=== PATIENT | male | born 1960 | race Caucasian/White ===

== ENCOUNTER 2016-12-29 17:00 | Emergency (ER) | payer BC ==
[~2016-12-29] VITALS: Ht 185.4 cm; Wt 93.2 kg
[2016-12-29 17:02] VITALS: TEMP 98.3
[2016-12-29] MEDS ORDERED: LIPITOR20 MG PO (17:22)
[2016-12-29] MEDS ORDERED: LEXAPRO 10MG10 MG PO (17:22)
[2016-12-29] MEDS ORDERED: DEXILANT60 MG PO (17:23)
[2016-12-29] MEDS ORDERED: ZANTAC 150MG T150 MG PO (17:23)
[2016-12-29] MEDS ORDERED: LOTENSIN 1010 MG/TAB PO (17:23)
[2016-12-29] MEDS ORDERED: XANAX 0.5MG0.5 MG PO (17:24)
[2016-12-29 17:59] LABS: BASO % 0.4 % (0.0-2.0); EOS % 0.3 % (0-4.0); GRAN # 4.8 (1.4-6.5); GRAN % 68.4 % (42.2-75.2); HEMATOCRIT 43.1 % (42.0-52.0); LYMPH # 1.8 (1.2-3.4); LYMPH % 25.4 % (20.0-51.0); MEAN CELL VOLUME 93 fl (80.0-100.0); MEAN CORPUSCULAR HEMOGLOBIN 32 pg (27.0-31.0); MEAN CORPUSCULAR HGB CONC 35 g/dl (33.0-37.0); MONO # 0.4 (0.1-0.6); MONO % 5.4 % (1.7-9.3); PLATELET COUNT 246 K/mm3 (130-400); RED BLOOD COUNT 4.65 M/mm3 (4.20-5.60); WHITE BLOOD COUNT 7.1 K/mm3 (4.8-10.8)
[2016-12-29 18:03] LABS: PROTHROMBIN TIME 11.6 SECONDS (9.7-12.8)
[2016-12-29 18:05] LABS: PARTIAL THROMBOPLASTIN TIME 27.2 SECONDS (26.0-37.0)
[2016-12-29 18:08] LABS: ADJUSTED CALCIUM 8.8 mg/dL (8.4-10.2); ALANINE AMINOTRANSFERASE 26 U/L (21-72); ALBUMIN 4.4 gm/dL (3.5-5.0); ALKALINE PHOSPHATASE 59 U/L (50-136); ANION GAP 12 mmol/L (7-16); BILIRUBIN,TOTAL 1.1 mg/dL (0.0-1.0); BLOOD UREA NITROGEN 9 mg/dL (9-20); CALCIUM 9.1 mg/dL (8.4-10.2); CARBON DIOXIDE 24 mmol/L (22-30); CHLORIDE 103 mmol/L (98-107); CREATININE, serum 0.89 mg/dL (0.66-1.25); GLUCOSE 86 mg/dL (74-106); POTASSIUM 4.2 mmol/L (3.4-5.0); SODIUM 139 mmol/L (137-145); TOTAL PROTEIN 7.2 gm/dL (6.4-8.2)
[2016-12-29 18:19] LABS: TROPONIN-I < 0.012 ng/mL (0.000-0.034)
[2016-12-29] MEDS ORDERED: ATIVAN 1MG T1 MG/TAB PO (18:32)
[2016-12-29 18:36] VITALS: BP 141/89; PULSE 57
== END 2016-12-29 18:40 | disposition home or self-care (01) ==
LOC: COL.ER 17:00
PROVIDERS: Family Medicine
DX: F41.9 Anxiety disorder, unspecified (principal); K44.9 Diaphragmatic hernia without obstruction or gangrene; R07.89 Other chest pain; K21.9 Gastro-esophageal reflux disease without esophagitis
CPT/HCPCS: J2060; J7030